=== PATIENT | female | born 1965 | race Caucasian/White ===

== ENCOUNTER 2019-04-30 18:09 | Emergency (ER) | payer BC ==
[2019-04-30 18:31] VITALS: BP 119/66
--- NOTE | 2019-04-30 19:08 | UC ---
Hand/Wrist HPI - HPI Summary HPI Summary: fell to left wrist, and knees, wrist is bruised and painful. knees ok happened at 1130 - History Of Current Complaint Chief Complaint: UCUpperExtremity Stated Complaint: LT HAND INJURY Time Seen by Provider: 04/30/19 18:12 Hx Obtained From: Patient Hx Last Menstrual Period: no ?: No Onset/Duration: Sudden Onset, Lasting Hours Severity Initially: Severe Severity Currently: Severe Pain Intensity: 7 Aggravating Factor(s): Movement Alleviating Factor(s): Nothing Associated Signs And Symptoms: Positive: Swelling, Bruising - Allergies/Home Medications Allergies/Adverse Reactions: Allergies Allergy/AdvReac Type Severity Reaction Status Date / Time potatoes,nuts,peas Allergy Intermediate itchy Uncoded 04/30/19 18:31 Home Medications: Home Medications Pravastatin (NF) [Pravachol (NF)] 10 mg PO 1700 09/11/15 [History Confirmed 10/11] Ibuprofen TAB* [Motrin TAB* 800 MG] 800 mg PO Q6H PRN 09/13/15 [History Confirmed 04/30/19] PMH/Surg Hx/FS Hx/Imm Hx Previously Healthy: Yes - Surgical History Surgical History: Yes Surgery Procedure, Year, and Place: T&A, neck surgery for bone spur removal , laparoscopy - cysts removed from ovary, uterine ablation, tubal ligation - Family History Known Family History: Negative: Cardiac Disease, Hypertension - Social History Alcohol Use: None Substance Use Type: None Smoking Status (MU): Never Smoked Tobacco - Immunization History Most Recent Influenza Vaccination: no Review of Systems All Other Systems Reviewed And Are Negative: Yes Skin: Positive: Bruising Musculoskeletal: Positive: Arthralgia, Myalgia Physical Exam Triage Information Reviewed: Yes Appearance: Well-Appearing, Well-Nourished, Pain Distress Vital Signs: Initial Vital Signs Temp 98.8 F 04/30/19 18:27 Pulse 58 04/30/19 18:27 Resp 16 04/30/19 18:27 BP 119/66 04/30/19 18:27 Pulse Ox 100 04/30/19 18:27 Vital Signs Reviewed: Yes Eye Exam: Normal ENT Exam: Normal Dental Exam: Normal Neck exam: Normal Respiratory Exam: Normal Respiratory: Positive: Chest non-tender, Lungs clear, Normal breath sounds Cardiovascular Exam: Normal Cardiovascular: Positive: RRR, No Murmur, Pulses Normal Abdominal Exam: Normal Bowel Sounds: Positive: Present Musculoskeletal: Positive: Strength Intact, ROM Intact, Edema @ - mild over the anterior wrist Neurological Exam: Normal Psychological Exam: Normal Skin: Positive: Other - bruising of left wrsit Hand/Wrist Course/Dx - Course Course Of Treatment: hx obtained, exam performed ,meds reviewed, splint applied no obvious freacture noted - Differential Dx/Diagnosis Differential Diagnosis/HQI/PQRI: Contusion, Dislocation, Fracture Provider Diagnosis: Contusion of left wrist, initial encounter Discharge ED - Sign-Out/Discharge Documenting (check all that apply): Patient Departure All imaging exams completed and their final reports reviewed: No Studies - Discharge Plan Condition: Stable Disposition: HOME Patient Education Materials: Wrist Injury (ED) Referrals: Juan Cisneros MD [Primary Care Provider] - Additional Instructions: 1. use the splint for support 2. warm water soaks daily with gentler range of motion 3. Tylenol opr mOtrin for pain - Billing Disposition and Condition Condition: STABLE Disposition: Home
== END 2019-04-30 19:19 | disposition home or self-care (01) ==
LOC: UCCORT 18:09
DX: S60.212A Contusion of left wrist, initial encounter (principal); X58.XXXA Exposure to other specified factors, initial encounter; Y92.9 Unspecified place or not applicable; Z91.018 Allergy to other foods
CPT/HCPCS: 99213; G0463